=== PATIENT | male | born 1945 | race Caucasian/White ===

== ENCOUNTER 2016-10-21 18:15 | Inpatient (IN) | payer OTHER, MEDICARE ==
[~2016-10-21] VITALS: Ht 175.3 cm; Wt 87.2 kg
--- NOTE | ~2016-10-21 | HC ---
[facility] [place] [address] CONSULTATION Name: FLOR PORRAS Room #: 200-I ADM IN M.R.#: [id number] Admission: 10/21/16 Attend Phys: Martín Stroud MD Discharge: Date of : 41 Report #: [id number] THIS REPORT FOR: //name// CC: Zafar Stroud DATE OF SERVICE: 10/21/2016 TYPE OF REPORT: Cardiology consultation. INDICATION: Chest pains. HISTORY OF PRESENT ILLNESS: This is a pleasant 71-year-old gentleman presenting with new-onset chest pain or shortness of breath. 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 He also felt diaphoretic and dyspnea. He took several nitroglycerin, finally reliving his symptoms. In the ER at [facility], he was noted to have a positive troponin and he was subsequently transferred to [facility]. The peak troponin here is 12.16. He is stable on IV heparin. PAST MEDICAL HISTORY: Hypertension, hypothyroidism and mild hypercholesterolemia. ALLERGIES: Possibly SULFA. MEDICATIONS: Include lisinopril 10 mg and Synthroid. SOCIAL HISTORY: Denies tobacco use. FAMILY HISTORY: Negative for premature CAD. REVIEW OF SYSTEMS: A full 10-point review of systems performed. Only the pertinent positives and negatives are described in the HPI. PHYSICAL EXAMINATION: VITAL SIGNS: Blood pressure is 120/70 and heart rate is 75 beats per minute. GENERAL APPEARANCE: This is a well-developed and well-nourished male, in no acute respiratory distress. HEAD AND EYES: Normocephalic. Sclerae are anicteric. ENT: Oral mucosa moist. NECK: Supple. LUNGS: Clear to auscultation. CARDIAC: Regular rate and rhythm. S1 and S2 positive. ABDOMEN: Soft. EXTREMITIES: No major joint deformities. [facility] [address] [place] [address] CONSULTATION Name: FLOR PORRAS Room #: 200-I ADM IN [facility].#: [id number] Admission: 10/21/16 Attend Phys: Martín Stroud MD Discharge: Date of : 43 Report #: [id number] NEUROLOGICAL: Alert and oriented times 3. RADIOLOGICAL DATA: ECG reveals sinus rhythm, nonspecific ST-segment abnormalities. LABORATORY VALUES: Peak troponin is 12.16. ASSESSMENT: 1. Ihl-GK-kcfajazxy myocardial infarction, I discussed with the patient and his family the pros and cons of noninvasive stress testing versus cardiac catheterization. Given his unstable anginal presentation, we will proceed with a cardiac catheterization. 2. Hypertension, continue with medications. 3. Hypercholesterolemia, start statin therapy. 4. Hypothyroidism, continue with Synthroid. Thank you for allowing me to participate in the care of your patient. <ELECTRONICALLY SIGNED> By: Rey Escalera MD 10/23/16 0748 1231 2258 Rey Escalera MD /jenni
--- NOTE | ~2016-10-21 | EKG ---
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
--- NOTE | ~2016-10-21 | EKG ---
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
--- NOTE | ~2016-10-21 | EKG ---
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
--- NOTE | ~2016-10-21 | H ---
[facility] [place] [address] HISTORY AND PHYSICAL Name: FLOR PORRAS Room #: 200-I ADM IN M.R.#: [id number] Admission: 10/21/16 Attend Phys: Martín Stroud MD Discharge: Date of : 43 Report #: [id number] THIS REPORT FOR: //name// CC: Zafar Stroud DATE OF SERVICE: 10/22/2016 TYPE OF DICTATION: Admission H and P after ybdk-ht-vohx encounter. CHIEF COMPLAINT: Chest pain. HISTORY OF PRESENT ILLNESS: A 71-year-old male with hypertension, hypothyroidism and chronic low back pain, presented to the ER complaining of chest pain. The patient told me that he had chest pain when he was doing some chores at his home yesterday. Chest pain was retrosternal and fleeting in nature. It did not go anywhere. The patient came to the hospital secondary to this chest pain. Currently, the patient denies any chest pain. He is resting. He is on heparin drip at his bed. The patient had an EKG, which did not show any acute insults, but left axis deviation. His troponin was checked and it came back very high. REVIEW OF SYSTEMS: Except that mentioned in HPI, all other systems are negative. PAST MEDICAL HISTORY: 1. Hypertension. 2. Hypothyroidism. 3. Low back pain. PAST SURGICAL HISTORY: None. FAMILY HISTORY: Noncontributory. SOCIAL HISTORY: He does not drink, smoke or take any illicit drugs. PHYSICAL EXAMINATION: GENERAL: He is alert, oriented and not in acute distress. VITAL SIGNS: His blood pressure is 130/75, respirations 18, pulse 57 and temperature 37. HEENT: Eyes PERRLA. Intact extraocular muscles. No icterus. NECK: Supple, no JVD, no bruit and no thyroid. CHEST: Good air entry both sides. Normal respiratory effort. CARDIOVASCULAR: Regular rate and rhythm. No murmur, rub or gallop. ABDOMEN: Lax, not tender, positive bowel sounds, no organomegaly appreciated. EXTREMITIES: No cyanosis, clubbing or edema. [facility] [address] [place] [address] HISTORY AND PHYSICAL Name: FLOR PORRAS Room #: 200-I ADM IN ..#: [id number] Admission: 10/21/16 Attend Phys: Martín Stroud MD Discharge: Date of : 43 Report #: [id number] NEUROLOGIC: Cranial nerves 2-12 are intact. No focal neurological signs. PSYCHIATRIC: Normal affect, mood and judgment . LABORATORY DATA: PT/INR 10.4/1, his LDL is 118, troponin is 12.16, creatinine 1.1 and BUN 21. Sodium 140 and potassium 4.1. Hemoglobin 12.7 and white cells 6.4. ASSESSMENT AND PLAN: 1. Chest pain. The patient seems to have non ST-elevation myocardial infarction. The patient is going to be admitted to the hospital. He is going to be on a monitor. The patient is going to be on a heparin drip and Cardiology were consulted. The patient is going to have aspirin and nitroglycerin for chest pain. We are waiting for Cardiology to see the patient. 2. Hypertension, seems to be in a good range. We are going to continue his home medicines. 3. Hypothyroidism. He is on replacement. We are going to continue that. 4. Low back pain, continue his pain medication. 5. Hyperlipidemia with LDL of 118. We are going to start him on Lipitor. 6. The patient is going to be full code. 7. The patient will be on deep vein thrombosis and gastrointestinal prophylaxis. <ELECTRONICALLY SIGNED> By: Polo Johnson MD 10/23/16 0740 1244 1442 Polo Johnson MD /nt
--- NOTE | ~2016-10-21 | CATHLAB ---
[facility] Jaylin Quiroz [employer] [place] [place] [address] INVASIVE PROCEDURE REPORT Name: FLOR PORRAS Room #: 200-I ADM IN M.R.#: [id number] Admission: 10/21/16 Attend Phys: Martín Stroud Discharge: Date of : 41 Date of Service: 10/22/16 1507 Report #: [id number] THIS REPORT FOR: //name// CC: Zafar Stroud DATE OF SERVICE: 10/22/2016 INDICATION: Non-ST elevation MA. Full risks, benefits and alternatives of cardiac catheterization were explained to the patient. All questions were answered. Informed consent was obtained. A Barbeau test was performed on the right radial artery. The right wrist area was prepped and draped in a sterile manner. Lidocaine was given subcutaneously. A 6-Togolese sheath was inserted into the right radial artery via modified Seldinger technique. Nitroglycerin and verapamil was given through the sheath. CORONARY ANATOMY: The left main artery is a moderate sized caliber vessel, with no flow-limiting lesions. The LAD is a moderate sized caliber vessel, traveling down the anterior wall and wrapping around the apex. In the proximal segment, there is a rgdn-ta-motyhkmg stenosis, 40%. The first diagonal artery has a moderate stenosis at the proximal segment, 50%. The left circumflex artery has a severe, 99% stenosis with thrombus in the proximal segment. After this stenosis, the left circumflex artery gives off 2 obtuse marginal arteries. The first OM has no flow limiting lesions. The second OM has a severe, 70% stenosis in the proximal segment. The RCA is a dominant vessel with mild to moderate disease in the mid segment, 40%. There is also mild disease in the distal segment just before the crux. The PDA and posterolateral branches do not have any flow limiting lesions. A left ventriculogram was performed revealing an ejection fraction of 55% with mild hypokinesis of the anterior lateral segment. The LVEDP is approximately 27 mmHg. There is no gradient across the outflow tract. ANGIOPLASTY REPORT: A 6-Togolese guide was used. The patient was given Angiomax. A Luge wire was passed through the proximal circumflex obstruction and placed in the first OM. The proximal circumflex lesion was predilated with a 2.5 mm Euphora balloon. I then placed a 2.75 x 18 mm Resolute (drug-eluting stent), inflated up to 8 atmospheres. This stent was postdilated with a 3.0 mm noncompliant balloon, NC Euphora inflated up to 16 atmospheres. I tried to pass a wire into the second obtuse marginal artery; however, the second OM had a [facility] [address] [place] [address] INVASIVE PROCEDURE REPORT Name: FLOR PORRAS Room #: 200-I ADM IN M.R.#: [id number] Admission: 10/21/16 Attend Phys: Martín Stroud Discharge: Date of : 41 Date of Service: 10/22/16 1507 Report #: [id number] sharp takeoff from the circ proper, unsuccessful in passing a wire. In addition, he had tortuosity in the right subclavian artery, limiting catheter selection. The patient tolerated the procedure without any complications. IMPRESSION: 1. Successful insertion of a drug-eluting stent into the severe stenosis in the proximal left circumflex. 2. A 70% stenosis in the proximal segment of the second obtuse marginal artery. Recommend medical therapy, consider staged angioplasty at a later date via the right femoral artery access. 3. Mild to moderate lesions in the left anterior descending and right coronary artery. 4. Ejection fraction of 55%, with mild hypokinesis of the anterolateral segment. 5. Recommend dual antiplatelet therapy. <ELECTRONICALLY SIGNED> By: Rey Escalera MD 10/23/16 0747 1507 2305 Rey Escalera MD /nt
[2016-10-21 19:11] VITALS: BP 134/71
[2016-10-21] MEDS ORDERED: NORCO 10-325 T1 EACH PO (21:10)
[2016-10-21] MEDS ORDERED: LEVOTHYROXINE 0.15MG PO (21:11)
[2016-10-21] MEDS ORDERED: ZESTRIL20 MG PO (21:13)
[2016-10-21] MEDS ORDERED: CENTRUM SILVER1 EAC4 PO (21:14)
[2016-10-21 21:25] LABS: PROTIME 10.4 Seconds (9.3-11.4)
[2016-10-22] VITALS (12 sets, daily range): BP systolic 112–133; BP diastolic 67–84
[2016-10-22 06:28] LABS: ALBUMIN 3.5 g/dL (3.4-5.0); ANION GAP 8 mmol/L (7-16); BUN 21 mg/dL (7-18); CHLORIDE 104 mmol/L (98-107); CHOLESTEROL 193 mg/dL (<200); CO2 28 mmol/L (21-32); CREATININE 1.1 mg/dL (0.6-1.3); GLUCOSE 88 mg/dL (70-99); HDL CHOLESTEROL 63 mg/dL (>40); LDL CHOLESTEROL 118 mg/dL (<100); POTASSIUM 4.1 mmol/L (3.5-5.1); SODIUM 140 mmol/L (136-145); TC:HDL 3.1 Ratio (Not establshd); TRIGLYCERIDE 64 mg/dL (<150); VLDL 13 mg/dL (<40)
[2016-10-22 07:01] LABS: TROPONIN-I 12.16 ng/mL (<0.04-0.07)
[2016-10-22 07:40] LABS: HEMATOCRIT 37.6 % (42.0-52.0); HEMOGLOBIN 12.7 gm/dL (14.0-18.0); MCH 29.8 pg (26.0-34.0); MCHC 33.8 % (28.0-37.0); MCV 88.3 fL (80.0-100.0); RBC 4.25 mil/uL (4.50-6.00); RDW 13.9 % (10.5-14.5); WBC 6.4 thou/uL (4.0-11.0)
[2016-10-23 03:20] VITALS: BP 124/70
[2016-10-23 04:18] LABS: HEMOGLOBIN 12.4 gm/dL (14.0-18.0); MCH 29.7 pg (26.0-34.0); MCHC 33.6 % (28.0-37.0); MCV 88.3 fL (80.0-100.0); RBC 4.19 mil/uL (4.50-6.00); RDW 13.9 % (10.5-14.5); WBC 7.2 thou/uL (4.0-11.0)
[2016-10-23 04:35] LABS: CALCIUM 8.9 mg/dL (8.5-10.1); CREATININE 1.2 mg/dL (0.6-1.3); POTASSIUM 4.2 mmol/L (3.5-5.1)
[2016-10-23 04:44] LABS: TROPONIN-I 5.88 ng/mL (<0.04-0.07)
[2016-10-23 07:24] VITALS: BP 120/60
[2016-10-23 12:20] VITALS: BP 125/70
[2016-10-23 17:00] VITALS: BP 128/77
[2016-10-23 20:32] VITALS: BP 120/73
[2016-10-24 04:00] VITALS: BP 107/63
[2016-10-24] MEDS ORDERED: EFFIENT10 MG PO (07:38)
[2016-10-24] MEDS ORDERED: ATORVASTATIN CA40 MG PO (07:38)
[2016-10-24] MEDS ORDERED: LOPRESSOR25 PO (07:39)
[2016-10-24] MEDS ORDERED: NITROGLYCERIN0.4 MG SUBLING (07:39)
[2016-10-24] MEDS ORDERED: ASPIRIN325 PO (07:40)
[2016-10-24 09:53] VITALS: BP 129/73
[2016-10-24 11:18] VITALS: BP 129/73
[2016-10-24 12:34] VITALS: BP 129/73
== END 2016-10-24 12:26 | disposition home or self-care (01) | DRG 247 ==
LOC: 2N 18:15
PROVIDERS: Hospitalist; Internal Medicine Cardiovascular Disease; Internal Medicine Endocrinology, Diabetes & Metabolism
DX: I21.4 Non-ST elevation (NSTEMI) myocardial infarction (principal); I25.10 Atherosclerotic heart disease of native coronary artery without angina pectoris; I10 Essential (primary) hypertension; E78.5 Hyperlipidemia, unspecified; E78.00 Pure hypercholesterolemia, unspecified; G89.29 Other chronic pain; M54.9 Dorsalgia, unspecified; E03.9 Hypothyroidism, unspecified; K21.9 Gastro-esophageal reflux disease without esophagitis; Z88.2 Allergy status to sulfonamides; Z79.82 Long term (current) use of aspirin; Z98.890 Other specified postprocedural states; Z98.49 Cataract extraction status, unspecified eye; Z87.891 Personal history of nicotine dependence
CPT/HCPCS: 10081

== ENCOUNTER 2017-04-13 08:59 | Observation (INO) | payer OTHER, MEDICARE ==
[~2017-04-13] VITALS: Ht 172.7 cm; Wt 87.5 kg
--- NOTE | ~2017-04-13 | EKG ---
[address] [place] [address] ELECTROCARDIOGRAM REPORT Name: FLOR PORRAS BOOGIE Room #: 206-[facility] M.R.#: [id number] Admission: 04/13/17 Attend Phys: Rey Escalera MD Discharge: 04/14/17 Date of : 43 Report #: [id number] THIS REPORT FOR: //name// [facility] Test Date: 2017-04-14 Test Time: 07:20:01 Pat Name: FLOR PORRAS Department: Room: 206 Gender: M Firer [place]: Aleshia LAMBERT : 1945 Requested By: Rey Escalera Order Number: [id number] MD: Omero Johnson Measurements Intervals [place] Rate: 54 P: 41 OR: 215 QRS: -16 QRSD: 96 T: 33 QT: 429 QTc: 407 Interpretive Statements Sinus bradycardia Borderline prolonged [place] interval Borderline left axis deviation Baseline wander in lead(s) V5 Compared to ECG 10/23/2016 07:01:13 No significant changes Electronically Signed On 04-16-2017 13:07:10 CDT by Omero Johnson [email or web address] <ELECTRONICALLY SIGNED> By: Omero Johnson MD, [facility] 04/16/17 1307 9 9 Omero Johnson MD, [facility] /EPI
--- NOTE | ~2017-04-13 | CATHLAB ---
[facility] Jaylin [place] [address] INVASIVE PROCEDURE REPORT Name: FLOR PORRAS Room #: 206-P ADM IN M.R.#: [id number] Admission: 04/13/17 Attend Phys: Rey Escalera MD Discharge: Date of : 41 Date of Service: 04/13/17 1641 Report #: [id number] THIS REPORT FOR: //name// APPROVED REPORT Patient Details Patient Status: Out-Patient Room #: The patient is a 71 year-old male Event Personnel Rey Escalera Production Engine Repairer, Laura Aguilar, Bela Abraham RN RN, Moises Ireland Scrwade Procedures Performed Art Access - R femoral artery* Left Heart Cath w/or w/o Coronaries [id number] [facility] [address] C Place w/wo Plasty Single OM 107015 Hemostasis w/ Mynx Indication Unstable angina Risk Factors Hypercholesterolemia, Coronary Artery DiseaseHypertension Procedure Narrative The patient was brought electively to the Cardiac Catheterization Laboratory and was prepped and draped in a sterile manner. The Right Groin^ was infiltrated with 1% Lidocaine subcutaneous anesthesia. A PINNACLE 4FR Sheath #[id number] sheath was inserted into the RFA^. Coronary angiography was performed using coronary diagnostic catheters. The right coronary system was accessed and visualized with a JR 4 catheter. The left coronary system was accessed and visualized with a JL 5 catheter. The left ventricle was accessed and visualized with a JR 4 catheter. Pre-demployment femoral angiogram was performed . The patient tolerated the procedure well and there were no complications associated with the procedure. There was no hematoma. Intraoperative Conscious Sedation Sedation start time: 12:40 Case end Time: 13:33 Fentanyl 100.0 mcg Versed 2.0 mg Fluoro Time: 9.39 minutes Dose: [address] [facility] [place] [address] INVASIVE PROCEDURE REPORT Name: FLOR PORRAS [place] Room #: 206-[facility] IN M.R.#: [id number] Admission: 04/13/17 Attend Phys: Rey Escalera MD Discharge: Date of : 41 Date of Service: 04/13/17 1641 Report #: [id number] Contrast Type and Amount: Visipaque 270 ml Coronary Angiography The patient's coronary anatomy is right dominant. Diagnostic Cath LAD Proximal LAD has mild disease. Diagonal 1 Proximal segment has moderate stenosis, 40-50%. Circumflex Patent stent in the proximal circumflex. There is a severe stenosis in the mid circumflex segment. OM2 Moderate size caliber vessel with a severe stenosis in the proximal segment, 99%. Right Coronary Right dominant system with a moderate stenosis in the midsegment, 40-50%. R PDA No significant stenosis RPLV No significant stenosis Left Ventriculography Ejection Fraction was >55% based off patient's Echocardiogram. Hemodynamics The aortic pressure is 176/69 mmHg with a mean of 112 mmHg. The left ventricular pressure is 174/9 mmHg with a mean of mmHg. The left ventricular end diastolic pressure is 19 mmHg. PCI Technique Lesion Anticoagulation was achieved with Angiomax. Percutaneous coronary intervention was performed on the second obtuse marginal branch segment. A VISTA 6FR JL5 #[id number] Guide Catheter was used to engage the Circ ostium. A Luge Wire .014 x 182CM #[id number] Interventional Guidewire was used to cross the lesion. BALLOON DILATION A Balloon catheter Euphora RX 2.0 x12 #[id number] was inserted and inflated up to 8.00atm for 12seconds. STENT DEPLOYMENT A drug-eluting stent RESOLUTE RX 2.75 X 14 #[id number] was inserted and inflated up to 9.00atm for 22seconds. POST STENT DEPLOYMENT BALLOON DILATION A Balloon catheter Euphora NC RX 2.75 x 12 #[id number] was inserted and inflated up to 18.00atm for 28seconds. [facility] [address] [place] [address] INVASIVE PROCEDURE REPORT Name: FLOR PORRAS Room #: 206-P [facility] IN .R.#: [id number] Admission: 04/13/17 Attend Phys: Rey Escalera MD Discharge: Date of : 41 Date of Service: 04/13/17 1641 Report #: [id number] COMMENTS Successful insertion of a drug-eluting stent into the proximal segment of the second obtuse marginal artery. Successful insertion of a drug-eluting stent into the mid segment of the left circumflex artery. Conclusion 1. Patent stent in the proximal left circumflex artery. 2. Successful insertion of drug-eluting stents into the proximal segment of the second OM artery and mid segment of the LCx artery. Recommendations Daily ASA with Plavix for at least one year Aggressive Medical Therapy <ELECTRONICALLY SIGNED> By: Rey Escalera MD 04/13/171640 40 40 Rey Escalera MD /INF
[~2017-04-13 08:59] MED LIST: ASPIRIN325 PO; ATORVASTATIN CA40 MG PO; CENTRUM SILVER1 EAC4 PO; EFFIENT10 MG PO; LEVOTHYROXINE 0.15MG PO; LOPRESSOR25 PO; NITROGLYCERIN0.4 MG SUBLING; NORCO 10-325 T1 EACH PO; ZESTRIL20 MG PO
[2017-04-13] MEDS ORDERED: PLAVIX 75 MG TA75 M1 PO (09:24)
[2017-04-13] MEDS ORDERED: CENTRUM SILVER1 EAC4 PO (09:31)
[2017-04-13 09:44] VITALS: BP 163/76
[2017-04-13 10:19] LABS: HEMATOCRIT 36.9 % (42.0-52.0); HEMOGLOBIN 12.5 gm/dL (14.0-18.0); MCH 31.3 pg (26.0-34.0); MCV 92.1 fL (80.0-100.0); RBC 4.01 mil/uL (4.50-6.00); RDW 14.6 % (10.5-14.5); WBC 4.7 thou/uL (4.0-11.0)
[2017-04-13 10:28] LABS: CALCIUM 8.9 mg/dL (8.5-10.1); CREATININE 1.3 mg/dL (0.7-1.3); POTASSIUM 4.5 mmol/L (3.5-5.1)
[2017-04-13 14:45] VITALS: BP 150/80
[2017-04-13 16:00] VITALS: BP 152/62
[2017-04-13 19:27] VITALS: BP 150/74
[2017-04-13 22:58] VITALS: BP 122/62
[2017-04-14 03:32] LABS: HEMATOCRIT 35.3 % (42.0-52.0); MCH 31.4 pg (26.0-34.0); MCV 92.4 fL (80.0-100.0); RBC 3.82 mil/uL (4.50-6.00); RDW 14.4 % (10.5-14.5); WBC 5.9 thou/uL (4.0-11.0)
[2017-04-14 03:46] LABS: CALCIUM 8.6 mg/dL (8.5-10.1); CREATININE 1.3 mg/dL (0.7-1.3); POTASSIUM 4.3 mmol/L (3.5-5.1)
[2017-04-14 03:50] LABS: TROPONIN-I 1.25 ng/mL (<0.04-0.07)
[2017-04-14 04:47] VITALS: BP 151/87
[2017-04-14 08:35] VITALS: BP 151/87
== END 2017-04-14 09:40 | disposition home or self-care (01) ==
LOC: CATH 08:59 → 2N 15:02
PROVIDERS: Internal Medicine Cardiovascular Disease
DX: I25.10 Atherosclerotic heart disease of native coronary artery without angina pectoris (principal); I10 Essential (primary) hypertension; E78.00 Pure hypercholesterolemia, unspecified; K21.9 Gastro-esophageal reflux disease without esophagitis; E78.5 Hyperlipidemia, unspecified; E03.9 Hypothyroidism, unspecified; I25.2 Old myocardial infarction; Z95.5 Presence of coronary angioplasty implant and graft; Z87.891 Personal history of nicotine dependence

== ENCOUNTER → 2017-07-13 | Outpatient (CLI) | payer OTHER, MEDICARE ==
[~2017-07-13] MED LIST changes: +PLAVIX 75 MG TA75 M1 PO
--- NOTE | ~2017-07-13 | 2DMMODE ---
[facility] [place] [address] 2 D/M-MODE ECHOCARDIOGRAM Name: FLOR PORRAS BOOGIE Room #: REG [facility]#: [id number] Admission: 07/13/17 Attend Phys: Rey Escalera MD Discharge: Date of : 41 Date of Service: 07/13/17 1150 Report #: [id number] THIS REPORT FOR: //name// APPROVED REPORT Study performed: 07/13/2017 11:01:41 EXAM: Comprehensive 2D, Doppler, and color-flow Echocardiogram Patient Location: Out-Patient Status: routine BSA: 2.01 HR: 56 bpm BP: 141/73 mmHg Rhythm: NSR Other Information Study Quality: Adequate/lung artifact Indications CAD Hx: NSTEMI, Stents, HTN, HLP 2D Dimensions RVDd: 37.49 mm LVEF(%): 57.60 (>50%) IVSd: 10.25 (7-11mm) LVOT Diam: 23.30 (18-24mm) LVDd: 46.73 mm PWd: 10.35 (7-11mm) Ascending Ao: 41.93 (22-36mm) LVDs: 32.59 (25-40mm) Aortic Root: 38.00 mm Martin's LVEF: 57.60 % Volumes Left Atrial Volume (Systole) Single Plane 4CH: 36.85 mL Single Plane 2CH: 37.80 mL LA ESV Index: 20.00 mL/m2 Aortic Valve AoV Peak Rangel.: 1.29 m/s AO Peak Gr.: 6.70 mmHg LVOT Max P.40 mmHg LVOT Max V: 1.16 m/s RIC Vmax: 3.82 cm2 AI Vmax: 4.61 m/s AI Bryan: 2.19 m/s2 AI PHT: 609.69 ms [facility] [place] [address] 2 D/M-MODE ECHOCARDIOGRAM Name: FLOR PORRAS [facility] [id number] Admission: 07/13/17 Attend Phys: Rey Escalera MD Discharge: Date of : 41 Date of Service: 07/13/17 1150 Report #: [id number] Mitral Valve E/A Ratio: 0.5 MV Decel. Time: 304.76 ms MV E Max Rangel.: 0.56 m/s MV A Rangel.: 1.02 m/s MV PHT: 88.38 ms IVRT: 101.50 ms Pulmonary Valve PV Peak Rangel.: 1.01 m/s PV Peak Gr.: 4.06 mmHg Pulmonary Vein P Vein S: 0.64 m/s P Vein A: 0.30 m/s P Vein D: 0.39 m/s P Vein A Dur.: 106.1 msec P Vein S/D Ratio: 1.64 Tricuspid Valve TR Peak Rangel.: 2.23 m/s RAP Estimate: 5.00 mmHg TR Peak Gr.: 19.97 mmHg PA Pressure: 25.00 mmHg Left Ventricle The left ventricle is normal size. There is normal left ventricular wall thickness. Left ventricular systolic function is normal. LVEF is 55%. Mild diastolic dysfunction is present (impaired relaxation pattern). Right Ventricle The right ventricle is normal size. The right ventricular systolic function is normal. Atria The left atrium size is normal. The right atrium size is normal. Aortic Valve The Aortic valve is mildly sclerotic. Mild to moderate aortic regurgitation. There is no aortic valvular stenosis. Mitral Valve The mitral valve is normal in structure. Mild mitral regurgitation. Tricuspid Valve The tricuspid valve is normal in structure. Mild tricuspid [address] [address] 2 D/M-MODE ECHOCARDIOGRAM Name: FLOR PORRAS BOOGIE Room #: REG CL Shadi#: [id number] Admission: 07/13/17 Attend Phys: Rey Escalera MD Discharge: Date of : 41 Date of Service: 07/13/17 1150 Report #: [id number] regurgitation. Estimated PAP is 25mmHg. Pulmonic Valve The pulmonary valve is normal in structure. Trace pulmonic regurgitation. Great Vessels Aortic root measures at the upper limites of normal. 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 IVC is normal in size and collapses >50% with inspiration. Pericardium There is no pericardial effusion. <Conclusion> The left ventricle is normal size. Left ventricular systolic function is normal. Mild diastolic dysfunction is present (impaired relaxation pattern). The right ventricle is normal size. The left atrium size is normal. Mild to moderate aortic regurgitation. Mild mitral regurgitation. Mild tricuspid regurgitation. Estimated PAP is 25mmHg. <ELECTRONICALLY SIGNED> By: Rey Escalera MD 07/13/17 1150 1150 1150 Rey Escalera MD /INF
== END ==
LOC: NUC 05-11 12:04
DX: I25.10 Atherosclerotic heart disease of native coronary artery without angina pectoris (principal)

== ENCOUNTER → 2018-11-08 | Outpatient (CLI) | payer OTHER, MEDICARE | LOC: NUC 08:00 | DX: R06.00 Dyspnea, unspecified (principal); R06.02 Shortness of breath; I10 Essential (primary) hypertension; E78.5 Hyperlipidemia, unspecified; J44.9 Chronic obstructive pulmonary disease, unspecified; E78.00 Pure hypercholesterolemia, unspecified; E03.9 Hypothyroidism, unspecified; Z87.891 Personal history of nicotine dependence; Z82.49 Family history of ischemic heart disease and other diseases of the circulatory system ==

== ENCOUNTER → 2019-05-30 | Outpatient (CLI) | payer OTHER, MEDICARE ==
--- NOTE | 2019-05-30 08:58 | 2DMMODE ---
[facility] [place] [address] 2 D/M-MODE ECHOCARDIOGRAM Name: FLOR PORRAS BOOGIE Room #: REG CL [facility]#: [id number] ������������� Admission: 05/30/19 ������������� Attend Phys: Rey Escalera MD Discharge: ��� ������������� ��� Date of : 41 Date of Service: 05/30/19 0858 �� Report #: [id number] �������� ��������������������������������������������[id number] THIS REPORT FOR: //name// APPROVED REPORT Study performed: 05/30/2019 07:48:04 EXAM: Comprehensive 2D, Doppler, and color-flow Echocardiogram Patient Location: Out-Patient Status: routine BSA: 1.96 HR: 96 bpm BP: 132/70 mmHg Other Information Study Quality: Adequate Indications CAD Hypertension/HDD 2D Dimensions RVDd: 35.44 mm IVSd: 11.19 (7-11mm) LVOT Diam: 20.70 (18-24mm) LVDd: 39.44 mm PWd: 11.15 (7-11mm) Ascending Ao: 39.07 (22-36mm) LVDs: 26.79 (25-40mm) Aortic Root: 39.26 mm IVC: 16.00 mm Volumes Left Atrial Volume (Systole) Single Plane 4CH: 29.55 mL Single Plane 2CH: 35.00 mL LA ESV Index: 19.00 mL/m2 Aortic Valve AoV Peak Rangel.: 1.10 m/s AO Peak Gr.: 4.85 mmHg LVOT Max P.20 mmHg LVOT Max V: 0.89 m/s RIC Vmax: 2.73 cm2 AI Vmax: 3.82 m/s AI [place]: 2.08 m/s2 AI PHT: 531.94 ms Mitral Valve [facility] [address] [place] [address] 2 D/M-MODE ECHOCARDIOGRAM Name: FLOR PORRAS Room #: REG [facility]#: [id number] ������������� Admission: 05/30/19 ������������� Attend Phys: Rey Escalera MD Discharge: ��� ������������� ��� Date of : 41 Date of Service: 05/30/19 0858 �� Report #: [id number] �������� ��������������������������������������������[id number] E/A Ratio: 0.6 MV Decel. Time: 393.05 ms MV E Max Rangel.: 0.45 m/s MV A Rangel.: 0.70 m/s MV PHT: 113.98 ms IVRT: 138.41 ms Pulmonary Valve PV Peak Rangel.: 1.02 m/s PV Peak Gr.: 4.17 mmHg Pulmonary Vein P Vein S: 0.59 m/s P Vein A: 0.24 m/s P Vein D: 0.35 m/s P Vein A Dur.: 115.3 msec P Vein S/D Ratio: 1.69 Tricuspid Valve TR Peak Rangel.: 2.31 m/s RAP Estimate: 5.00 mmHg TR Peak Gr.: 21.27 mmHg PA Pressure: 26.00 mmHg Left Ventricle The left ventricle is normal size. There is normal left ventricular wall thickness. The left ventricular systolic function is normal. The left ventricular ejection fraction is within the normal range. LVEF is 60-65%. Mild diastolic dysfunction is present (impaired relaxation pattern). Right Ventricle The right ventricle is normal size. The right ventricular systolic function is normal. Atria The left atrium size is normal. The right atrium size is normal. Aortic Valve Mild aortic valve sclerosis. Mild to moderate aortic regurgitation. There is no aortic valvular stenosis. Mitral Valve The mitral valve is normal in structure. Mild mitral regurgitation. No evidence of mitral valve stenosis. Tricuspid Valve The tricuspid valve is normal in structure. Trace to mild tricuspid regurgitation. PAP is estimated at [address] [address] 2 D/M-MODE ECHOCARDIOGRAM Name: FLOR PORRAS Room #: REG CL [facility]#: [id number] ������������� Admission: 05/30/19 ������������� Attend Phys: Rey Escalera MD Discharge: ��� ������������� ��� Date of : 41 Date of Service: 05/30/19 0858 �� Report #: [id number] �������� ��������������������������������������������[id number] Pulmonic Valve The pulmonary valve is normal in structure. Trace pulmonic regurgitation. Great Vessels Aortic root is mildly dilated at 3.9 cm. IVC is normal in size and collapses >50% with inspiration. Pericardium There is no pericardial effusion. <Conclusion> The left ventricle is normal size. There is normal left ventricular wall thickness. The left ventricular systolic function is normal. Mild diastolic dysfunction is present (impaired relaxation pattern). The right ventricle is normal size. The left atrium size is normal. Mild aortic valve sclerosis. Mild to moderate aortic regurgitation. Mild mitral regurgitation. Trace to mild tricuspid regurgitation. PAP is estimated at 26 mmHg. ��������������������������������������������� <ELECTRONICALLY SIGNED> ���������������������������������������� By: Rey Escalera MD ��������������������������������������������� 05/30/19 0858 08 Rey Escalera MD /INF
== END ==
LOC: CV 06:18
DX: I08.3 Combined rheumatic disorders of mitral, aortic and tricuspid valves (principal); I25.10 Atherosclerotic heart disease of native coronary artery without angina pectoris

== ENCOUNTER → 2019-10-18 | Outpatient (CLI) | payer OTHER, MEDICARE | LOC: SJCVC 13:24 | DX: I25.10 Atherosclerotic heart disease of native coronary artery without angina pectoris (principal); I10 Essential (primary) hypertension; E78.00 Pure hypercholesterolemia, unspecified; K21.9 Gastro-esophageal reflux disease without esophagitis; E03.9 Hypothyroidism, unspecified; I25.2 Old myocardial infarction; Z87.891 Personal history of nicotine dependence; Z88.2 Allergy status to sulfonamides; Z88.8 Allergy status to other drugs, medicaments and biological substances; Z79.82 Long term (current) use of aspirin; Z79.899 Other long term (current) drug therapy ==

== ENCOUNTER → 2019-10-29 | Outpatient (CLI) | payer OTHER, MEDICARE | LOC: SJCVC 10:35 | DX: I10 Essential (primary) hypertension (principal); I25.10 Atherosclerotic heart disease of native coronary artery without angina pectoris; I25.2 Old myocardial infarction; E78.00 Pure hypercholesterolemia, unspecified; K21.9 Gastro-esophageal reflux disease without esophagitis; Z79.899 Other long term (current) drug therapy; Z79.82 Long term (current) use of aspirin ==

== ENCOUNTER → 2019-10-29 | Outpatient (CLI) | payer OTHER, MEDICARE | LOC: NUC 07:16 | DX: R06.00 Dyspnea, unspecified (principal); I25.10 Atherosclerotic heart disease of native coronary artery without angina pectoris; I10 Essential (primary) hypertension; E78.5 Hyperlipidemia, unspecified; Z87.891 Personal history of nicotine dependence; Z79.899 Other long term (current) drug therapy ==

== ENCOUNTER → 2019-12-16 | Outpatient (CLI) | payer OTHER, MEDICARE | LOC: SJCVC 10:13 | DX: I44.0 Atrioventricular block, first degree (principal); I25.10 Atherosclerotic heart disease of native coronary artery without angina pectoris; I10 Essential (primary) hypertension; K21.9 Gastro-esophageal reflux disease without esophagitis; E78.00 Pure hypercholesterolemia, unspecified; I25.2 Old myocardial infarction; E03.9 Hypothyroidism, unspecified; Z90.49 Acquired absence of other specified parts of digestive tract; Z79.899 Other long term (current) drug therapy; Z87.891 Personal history of nicotine dependence ==

== ENCOUNTER → 2020-03-09 | Outpatient (CLI) | payer OTHER, MEDICARE | LOC: SJCVC 08:49 | DX: I44.0 Atrioventricular block, first degree (principal); R00.1 Bradycardia, unspecified; I25.10 Atherosclerotic heart disease of native coronary artery without angina pectoris; I10 Essential (primary) hypertension; K21.9 Gastro-esophageal reflux disease without esophagitis; E78.00 Pure hypercholesterolemia, unspecified; E03.9 Hypothyroidism, unspecified; Z79.82 Long term (current) use of aspirin; Z79.899 Other long term (current) drug therapy; Z87.891 Personal history of nicotine dependence ==

== ENCOUNTER → 2020-08-10 | Outpatient (CLI) | payer OTHER, MEDICARE | LOC: SJCVC 14:45 | PROVIDERS: ATTEND Internal Medicine Cardiovascular Disease | DX: I25.10 Atherosclerotic heart disease of native coronary artery without angina pectoris (principal); I10 Essential (primary) hypertension; E78.00 Pure hypercholesterolemia, unspecified; K21.9 Gastro-esophageal reflux disease without esophagitis; R06.00 Dyspnea, unspecified; I71.2 Thoracic aortic aneurysm, without rupture; R11.0 Nausea; R53.83 Other fatigue; Z79.899 Other long term (current) drug therapy; Z87.891 Personal history of nicotine dependence ==

== ENCOUNTER → 2020-10-26 | Outpatient (CLI) | payer OTHER, MEDICARE | LOC: SJCVCIMAG 09:02 | PROVIDERS: ATTEND Internal Medicine Cardiovascular Disease | DX: I35.1 Nonrheumatic aortic (valve) insufficiency (principal); I44.0 Atrioventricular block, first degree; I10 Essential (primary) hypertension; E78.00 Pure hypercholesterolemia, unspecified; I77.810 Thoracic aortic ectasia; K21.9 Gastro-esophageal reflux disease without esophagitis; I25.2 Old myocardial infarction; E03.9 Hypothyroidism, unspecified; Z90.49 Acquired absence of other specified parts of digestive tract; Z95.5 Presence of coronary angioplasty implant and graft; Z88.8 Allergy status to other drugs, medicaments and biological substances; Z79.82 Long term (current) use of aspirin; Z79.899 Other long term (current) drug therapy; Z87.891 Personal history of nicotine dependence ==

== ENCOUNTER → 2021-05-18 | Outpatient (CLI) | payer OTHER, MEDICARE | LOC: SJCVC 13:24 | PROVIDERS: ATTEND Internal Medicine Cardiovascular Disease | DX: I44.0 Atrioventricular block, first degree (principal); I25.10 Atherosclerotic heart disease of native coronary artery without angina pectoris; I10 Essential (primary) hypertension; E78.00 Pure hypercholesterolemia, unspecified; R53.83 Other fatigue; R06.02 Shortness of breath; E03.9 Hypothyroidism, unspecified; E78.5 Hyperlipidemia, unspecified; K21.9 Gastro-esophageal reflux disease without esophagitis; I25.2 Old myocardial infarction; Z90.49 Acquired absence of other specified parts of digestive tract; Z88.2 Allergy status to sulfonamides; Z88.8 Allergy status to other drugs, medicaments and biological substances; Z79.82 Long term (current) use of aspirin; Z79.899 Other long term (current) drug therapy; Z87.891 Personal history of nicotine dependence ==

== ENCOUNTER → 2021-05-24 | Outpatient (CLI) | payer OTHER, MEDICARE | LOC: SJCVCIMAG 09:44 | PROVIDERS: ATTEND Internal Medicine Cardiovascular Disease | DX: I44.0 Atrioventricular block, first degree (principal); I25.10 Atherosclerotic heart disease of native coronary artery without angina pectoris; I10 Essential (primary) hypertension; E78.00 Pure hypercholesterolemia, unspecified; R06.02 Shortness of breath; R06.09 Other forms of dyspnea; K21.9 Gastro-esophageal reflux disease without esophagitis; E78.5 Hyperlipidemia, unspecified; E03.9 Hypothyroidism, unspecified; Z87.891 Personal history of nicotine dependence; Z88.2 Allergy status to sulfonamides; Z88.8 Allergy status to other drugs, medicaments and biological substances; Z79.82 Long term (current) use of aspirin; Z79.899 Other long term (current) drug therapy ==